=== PATIENT | female | born 1990 | race Caucasian/White ===

== ENCOUNTER 2018-10-07 12:28 | Emergency (ER) | payer MEDICAID ==
[2018-10-07 12:28] VITALS: BMI 22.1
[2018-10-07 12:37] VITALS: TEMP 99.1
[2018-10-07] MEDS ORDERED: Sodium Chloride 0.9% 1,000 ML IV ONE (13:54)
[2018-10-07 13:59] LABS: SQUAMOUS EPITHIAL 9 /hpf (0-5); URINE BILIRUBIN NEGATIVE (NEGATIVE); URINE BLOOD 3+ (NEGATIVE); URINE CLARITY Hazy (Clear); URINE COLOR Yellow (YELLOW); URINE GLUCOSE (UA) NORMAL (Normal); URINE LEUKOCYTE ESTERASE NEG Leu/uL (Negative); URINE PROTEIN NEGATIVE (NEGATIVE); URINE UROBILINOGEN NORMAL mg/dL (0.2-1.0)
[2018-10-07 14:13] LABS: BASO % 0.3 % (0.0-2.0); EOS # 0.1 K/uL (0.0-0.7); EOS % 2.2 % (0.0-4.0); LYMPH # 1.3 K/uL (1.0-4.3); LYMPH % 18.5 % (20.0-40.0); MEAN CELL VOLUME 87.3 fL (81.0-99.0); MEAN CORPUSCULAR HEMOGLOBIN 29.1 pg (27.0-31.0); MEAN CORPUSCULAR HGB CONC 33.3 g/dL (33.0-37.0); MONO # 0.4 K/uL (0.0-0.8); MONO % 5.8 % (0.0-10.0); NEUT % 73.2 % (50.0-75.0); RBC 4.12 Mil/uL (3.80-5.20); RED CELL DISTRIBUTION WIDTH 16.6 % (11.5-14.5); WHITE BLOOD COUNT 6.8 K/uL (4.8-10.8)
[2018-10-07 14:25] LABS: ALB/GLOB RATIO 1.3 (1.0-2.1); ALBUMIN 4.4 g/dL (3.5-5.0); ALT/SGPT 29 U/L (9-52); AST/SGOT 21 U/L (14-36); BLOOD UREA NITROGEN 11 mg/dL (7-17); GFR NON-AFRICAN AMERICAN > 60
--- NOTE | 2018-10-07 15:23 | US ---
Date of service: 10/07/2018 PROCEDURE: OB Pelvic Ultrasound HISTORY: pain LMP: 08/10/2018 suggesting gestation of 8 weeks 2 days. COMPARISON: None available. FINDINGS: UTERUS: Gestational sac: A gestational sac is identified within the endometrial cavity with mean sac diameter is 0.98 cm suggesting less than 5 weeks estimated gestational age. Yolk sacs identified. pole is not identified at this time. Amniotic membrane is not identified. Anabella-gestational hemorrhage: Unremarkable appearing decidual reaction. Uterus measures 9.0 x 6.8 x 8.0 cm, retroverted. Normal in size and appearance. CERVIX: Measures 3.3 cm. Long and closed. No cervical abnormality seen. RIGHT OVARY: Measures 4.8 x 3.7 x 5.3 cm. No mass lesion. Normal flow. Two simple appearing cysts are identified with the more lateral appearing smaller at 2.1 x 12.0 x 2.2 cm. The more medial measures 4.3 x 3.3 x 4.1 cm. No solid right ovarian mass is detected. Intra-ovarian arterial blood flow is detected. LEFT OVARY: Measures 3.5 x 2.1 x 2.9 cm. No solid mass. Normal flow. FREE FLUID: A mild amount of fluid is seen the cul-de-sac slightly complex in appearance. OTHER FINDINGS: None. IMPRESSION: Intrauterine gestation is identified with yolk sac identified. pole not identified. No gross hemorrhage related to decidual reaction at this time. Mean sac diameter may reflect early gestation less than 5 weeks estimated gestational age, discrepant from LMP derived dates. Consider possible viable intrauterine gestation though failure of gestation is a possibility. No definite ectopic gestation appreciable at this time. Follow-up serial serum beta HCG analysis is recommended as well as 1 week transvaginal ultrasonography. TECHNIQUE: Transvaginal pelvic ultrasound was performed with longitudinal and transverse images submitted for interpretation.
--- NOTE | 2018-10-07 15:27 | C.PDOC ---
History Of Present Illness 27 y/o female, , presents to the ER complaining of vaginal bleeding which has been present for the past 3 days. Patient states that the spotting was initially dark brown, but today it became red with clots. Patient is also compla ining of lower back pain. She reports that she had diarrheas 3 days ago which resolved. She notes that she has her first care visit in 2 days. Denies having dysuria, urinary frequency, vomiting, abdominal pain, pelvic pain, sob, fever, and chills. Time Seen by Provider: 10/07/18 13:51 Chief Complaint (Nursing): Female Genitourinary History Per: Patient History/Exam Limitations: no limitations Onset/Duration Of Symptoms: Days Current Symptoms Are (Timing): Still Present Past Medical History Reviewed: Historical Data, Nursing Documentation, Vital Signs Vital Signs: Last Vital Signs Temp 99.1 F 10/07/18 12:34 Pulse 87 10/07/18 12:34 Resp 18 10/07/18 12:34 BP 115/73 10/07/18 12:34 Pulse Ox 100 10/07/18 12:34 - Medical History PMH: No Chronic Diseases Surgical History: No Surg Hx - [facility] Procedures MANUAL ASSIST DELIV NEC (10/25/13) Family History: States: No Known Family Hx - Social History Hx Alcohol Use: No Hx Substance Use: No - Immunization History Hx Tetanus Toxoid Vaccination: No Hx Influenza Vaccination: No Hx Pneumococcal Vaccination: No Review Of Systems Except As Marked, All Systems Reviewed And Found Negative. Constitutional: Negative for: Fever, Chills Gastrointestinal: Negative for: Nausea, Vomiting, Abdominal Pain Genitourinary: Positive for: Vaginal Bleeding. Negative for: Dysuria Musculoskeletal: Positive for: Back Pain Physical Exam - Physical Exam Appears: Non-toxic, No Acute Distress Skin: Normal Color, Warm, Dry Head: Atraumatic, Normacephalic Eye(s): bilateral: Normal Inspection, EOMI Nose: Normal Oral Mucosa: Moist Neck: Normal ROM, Supple Chest: Symmetrical Cardiovascular: Rhythm Regular Respiratory: Normal Breath Sounds, No Rales, No Rhonchi, No Wheezing Gastrointestinal/Abdominal: Normal Exam, Soft, No Tenderness, No Guarding, No Rebound Back: No CVA Tenderness, No Vertebral Tenderness Neurological/Psych: Oriented x3, Normal Speech ED Course And Treatment - Laboratory Results Result Diagrams: 10/07/18 14:09 10/07/18 14:09 O2 Sat by Pulse Oximetry: 100 (RA) Pulse Ox Interpretation: Normal - CT Scan/US US- Transvaginal Other Rad Studies (CT/US): Read By Radiologist, Radiology Report Reviewed CT/US Interpretation: Date of service: 10/07/2018. PROCEDURE: OB Pelvic Ultrasound. HISTORY: pain. LMP: 08/10/2018 suggesting gestation of 8 weeks 2 days. COMPARISON: None available. FINDINGS: UTERUS: Gestational sac: A gestational sac is identified within the endometrial cavity with mean sac diameter is 0.98 cm suggesting less than 5 weeks estimated gestational age. Yolk sacs identified. pole is not identified at this time. Amniotic membrane is not identified. Anabella-gestational hemorrhage: Unremarkable appearing decidual reaction. Uterus measures 9.0 x 6.8 x 8.0 cm, retroverted. Normal in size and appearance. CERVIX: Measures 3.3 cm. Long and closed. No cervical a bnormality seen. RIGHT OVARY: Measures 4.8 x 3.7 x 5.3 cm. No mass lesion. Normal flow. Two simple appearing cysts are identified with the more lateral appearing smaller at 2.1 x 12.0 x 2.2 cm. The more medial measures 4.3 x 3.3 x 4.1 cm. No solid right ovarian mass is detected. Intra-ovarian arterial blood flow is detected. LEFT OVARY: Measures 3.5 x 2.1 x 2.9 cm. No solid mass. Normal flow. FREE FLUID: A mild amount of fluid is seen the cul-de-sac slightly complex in appearance. OTHER FINDINGS: None. IMPRESSION: Intrauterine gestation is identified with yolk sac identified. pole not identified. No gross hemorrhage related to decidual reaction at this time. Mean sac diameter may reflect early gestation less than 5 weeks estimated gestational age, discrepant from LMP derived dates. Consider possible viable intrauterine gestation though failure of gestation is a possibility. No definite ectopic gestation appreciable at this time. Follow-up serial serum beta HCG analysis is recommended as well as 1 week transvaginal ultrasonography. TECHNIQUE: Transvaginal pelvic ultrasound was performed with longitudinal and transverse images submitted for interpretation. Progress Note: Labs, UA, and US- OB Transvag ordered and reviewed. Pt declined pain medication. On re-evaluation, pt remains stable. Afebrile. No abdominal pain. No n/v. Pt was given the results of the US and labs and instructed to follow up with SORT WORKER in 2 days. Disposition - Disposition Disposition: HOME/ ROUTINE Disposition Time: 15:27 Condition: STABLE Additional Instructions: Follow up with your OB in 2 days as scheduled. Show them you ultrasound results. Your beta HCG today is 8500. Return to ER if symptoms persist or worsen. Instructions: Threatened Miscarriage (DC) Forms: Nanali ([place] Islander) - Clinical Impression Clinical Impression: First-trimester bleeding - PA / POLICY CHANGE CLERKS SUPERVISOR / Resident Statement MD/DO has reviewed & agrees with the documentation as recorded. - Scribe Statement The provider has reviewed the documentation as recorded by the Paulibe Minna Quintero Provider Attestation All medical record entries made by the Scribe were at my direction and personally dictated by me. I have reviewed the chart and agree that the record accurately reflects my personal performance of the history, physical exam, medical decision making, and the department course for this patient. I have also personally directed, reviewed, and agree with the discharge instructions and disposition.
[2018-10-07 15:55] VITALS: BP 132/85; PULSE 69; RESP 16
[2018-10-07 17:38] VITALS: O2SAT 100
== END 2018-10-07 15:54 | disposition home or self-care (01) ==
LOC: C.ER 12:28
DX: O46.91 Antepartum hemorrhage, unspecified, first trimester (principal); Z3A.01 Less than 8 weeks gestation of pregnancy

== ENCOUNTER 2018-10-11 09:58 | Observation (INO) | payer MEDICAID ==
[2018-10-11 10:02] VITALS: BMI 29.8
[2018-10-11 11:22] LABS: BASO % 0.3 % (0.0-2.0); EOS # 0.2 K/uL (0.0-0.7); EOS % 1.5 % (0.0-4.0); HEMOGLOBIN 11.4 g/dL (11.0-16.0); LYMPH # 1.5 K/uL (1.0-4.3); LYMPH % 12.1 % (20.0-40.0); MEAN CELL VOLUME 86.9 fL (81.0-99.0); MEAN CORPUSCULAR HEMOGLOBIN 29.3 pg (27.0-31.0); MEAN CORPUSCULAR HGB CONC 33.7 g/dL (33.0-37.0); MEAN PLATELET VOLUME 7.9 fL (7.2-11.7); MONO # 0.7 K/uL (0.0-0.8); MONO % 5.2 % (0.0-10.0); NEUT % 80.9 % (50.0-75.0); RBC 3.89 Mil/uL (3.80-5.20); RED CELL DISTRIBUTION WIDTH 16.1 % (11.5-14.5); WHITE BLOOD COUNT 12.4 K/uL (4.8-10.8)
--- NOTE | 2018-10-11 11:29 | C.PDOC ---
History Of Present Illness 28 year old female presents to the ED complaining of vaginal bleeding. Reports she was seen in the ED 10/07 for vaginal spotting and the US showed she was 5 weeks instead of 8 weeks like she initially thought. She f ollowed up with her Director Sales Support Dr. Jamison on 10/08 and was told she was having a miscarriage. Denies any previous miscarriages. Notes bleeding is worse. Denies any pain or any other complaints. LNMP 08/10/18. Time Seen by Provider: 10/11/18 10:17 Chief Complaint (Nursing): Female Genitourinary History Per: Patient History/Exam Limitations: no limitations Onset/Duration Of Symptoms: Days Current Symptoms Are (Timing): Still Present Associated Symptoms: Other (vaginal bleeding ) Abnormal Vaginal Bleeding: Yes Last Menstral Period: 08/10/18 : 3 Para: 2 Past Medical History Reviewed: Historical Data, Nursing Documentation, Vital Signs Vital Signs: Last Vital Signs Temp 98.9 F 10/11/18 10:03 Pulse 105 H 10/11/18 10:03 Resp 18 10/11/18 10:03 BP 137/68 10/11/18 10:03 Pulse Ox 98 10/11/18 10:03 - Medical History PMH: No Chronic Diseases Surgical History: No Surg Hx - [facility] Procedures MANUAL ASSIST DELIV NEC (10/25/13) Family History: States: No Known Family Hx - Social History Hx Alcohol Use: No Hx Substance Use: No - Immunization History Hx Tetanus Toxoid Vaccination: No Hx Influenza Vaccination: No Hx Pneumococcal Vaccination: No Review Of Systems Except As Marked, All Systems Reviewed And Found Negative. Constitutional: Negative for: Fever, Chills Cardiovascular: Negative for: Chest Pain Respiratory: Negative for: Shortness of Breath Gastrointestinal: Negative for: Nausea, Vomiting, Abdominal Pain, Diarrhea Genitourinary: Positive for: Vaginal Bleeding. Negative for: Dysuria, Hematuria, Vaginal Discharge Physical Exam - Physical Exam Appears: Non-toxic, No Acute Distress Skin: Warm, Dry Head: Normacephalic Eye(s): bilateral: Normal Inspection Nose: Normal Oral Mucosa: Moist Neck: Normal ROM, Supple Chest: Symmetrical Cardiovascular: Rhythm Regular Respiratory: Normal Breath Sounds, No Rales, No Rhonchi, No Wheezing Gastrointestinal/Abdominal: Bowel Sounds, Soft, No Tenderness, No Distention, No Hernia, No Ascites Back: Normal Inspection Extremity: Normal ROM Extremity: Bilateral: Atraumatic, Normal Color And Temperature, Normal ROM Neurological/Psych: Oriented x3, Normal Speech, Normal Motor, Normal Sensation Gait: Steady ED Course And Treatment - Laboratory Results Result Diagrams: 10/11/18 11:18 12 11:18 O2 Sat by Pulse Oximetry: 98 (RA) Pulse Ox Interpretation: Normal - CT Scan/US US transvaginal Other Rad Studies (CT/US): Read By Radiologist, Radiology Report Reviewed CT/US Interpretation: Accession No. : [id number]. Patient Name / ID : FRANCISCO MCCARTNEY / [id number]. Exam Date : 10/11/2018 12:32:14 ( Approved ). Study Comment : Sex / Age : F / 28Y. Creator : Missael Hook MD. Dictator : Missael Hook MD. House Decorator : School Curriculum Developer : Missael Hook MD. Approver2 : Report Date : 10/11/2018 13:29:07. My Comment : . Pelvic ultrasound. HISTORY: Vaginal bleeding. COMPARISON: 10/07/2018. Technique: Real-time sonography was performed through the pelvis utilizing transabdominal and transvaginal technique. Findings: Positive test with HCG level measuring 3676. Uterus: 11.1 x 6.5 x 6.5 centimeters. Heterogeneous echotexture. Anteverted. Endometrium is thickened and heterogeneous measuring up to 1.1 centimeters. No discrete intrauterine identified. Cervix measures 4 centimeters. No free fluid in the pelvic cul-de-sac. Right ovary: 5.5 x 4.3 x 5.2 centimeters. Normal flow. Heterogeneous hypoechoic cyst measuring 4.3 x 3.5 x 4.2 centimeters and 1.5 x 1.6 x 1.5 centimeters. Left ovary: 3.4 x 1.9 x 3.4 centimeters. Normal flow. Impression: Positive test. No discrete intrauterine . In the setting of a positive test and lack of discrete intrauterine considerations include a missed versus early versus ectopic . Clinical correlation. Thickened heterogeneous endometrium measuring up to 1.1 centimeters. Continued interval follow-up is recommended to exclude retained products of conception in the setting of a missed . Clinical correlation. Right ovarian cysts the largest of which measures up to 4.3 centimeters. Clinical correlation. Limited 1st trimester ultrasound for viability purposes only. Continued interval followup with serial ultrasound, serial HCG levels, and gynecological consultation would be helpful if clinically indicated. Medical Decision Making Medical Decision Making: Plan - Bloodwork - UA - US Transvaginal - Keflex 500mg PO - IV fluids - Urine culture 2:08pm case discussed with Dr. Duffy who is coming to evaluate the pt at bed site. Pt was evaluated by Dr. Duffy. Pt has incomplete and will stay for ED&C. Disposition Counseled Patient/Family Regarding: Studies Performed, Diagnosis - Disposition Disposition: HOSPITALIZED Disposition Time: 14:47 Condition: STABLE - Clinical Impression Clinical Impression: Incomplete , Urinary tract infection - PA / HAM BONER / Resident Statement MD/DO has reviewed & agrees with the documentation as recorded. - Scribe Statement The provider has reviewed the documentation as recorded by the Scribe Kandi Keys All medical record entries made by the David were at my direction and personally dictated by me. I have reviewed the chart and agree that the record accurately reflects my personal performance of the history, physical exam, medical decision making, and the department course for this patient. I have also personally directed, reviewed, and agree with the discharge instructions and disposition. Decision To Admit - Pt Status Changed To: Hospital Disposition Of: SDS- Endo,OR,Cath,IR - . Bed Request Type: COMMISSIONER OF CONCILIATION Admitting Physician: Carlos Duffy Patient Diagnosis: Incomplete , Urinary tract infection
[2018-10-11 11:34] LABS: SQUAMOUS EPITHIAL 1 /hpf (0-5); URINE BACTERIA RARE (<OCC); URINE BILIRUBIN NEGATIVE (NEGATIVE); URINE BLOOD 3+ (NEGATIVE); URINE CLARITY Clear (Clear); URINE COLOR Red (YELLOW); URINE GLUCOSE (UA) NORMAL (Normal); URINE PROTEIN 2+ mg/dL (NEGATIVE); URINE UROBILINOGEN NORMAL mg/dL (0.2-1.0)
[2018-10-11 11:35] LABS: ALB/GLOB RATIO 1.1 (1.0-2.1); ALBUMIN 4.1 g/dL (3.5-5.0); ALT/SGPT 31 U/L (9-52); AST/SGOT 20 U/L (14-36); BLOOD UREA NITROGEN 9 mg/dL (7-17); GFR NON-AFRICAN AMERICAN > 60
[2018-10-11 11:36] LABS: URINE LEUKOCYTE ESTERASE 2+ Leu/uL (Negative)
--- NOTE | 2018-10-11 13:33 | US ---
Pelvic ultrasound HISTORY: Vaginal bleeding. COMPARISON: 10/07/2018 Technique: Real-time sonography was performed through the pelvis utilizing transabdominal and transvaginal technique. Findings: Positive test with HCG level measuring 3676. Uterus: 11.1 x 6.5 x 6.5 centimeters. Heterogeneous echotexture. Anteverted. Endometrium is thickened and heterogeneous measuring up to 1.1 centimeters. No discrete intrauterine identified. Cervix measures 4 centimeters. No free fluid in the pelvic cul-de-sac. Right ovary: 5.5 x 4.3 x 5.2 centimeters. Normal flow. Heterogeneous hypoechoic cyst measuring 4.3 x 3.5 x 4.2 centimeters and 1.5 x 1.6 x 1.5 centimeters. Left ovary: 3.4 x 1.9 x 3.4 centimeters. Normal flow. Impression: Positive test. No discrete intrauterine . In the setting of a positive test and lack of discrete intrauterine considerations include a missed versus early versus ectopic . Clinical correlation. Thickened heterogeneous endometrium measuring up to 1.1 centimeters. Continued interval follow-up is recommended to exclude retained products of conception in the setting of a missed . Clinical correlation. Right ovarian cysts the largest of which measures up to 4.3 centimeters. Clinical correlation. Limited 1st trimester ultrasound for viability purposes only. Continued interval followup with serial ultrasound, serial HCG levels, and gynecological consultation would be helpful if clinically indicated.
[2018-10-11] MEDS ORDERED: Sodium Chloride 0.9% 1,000 ML IV ONE (14:07)
--- NOTE | 2018-10-11 14:59 | CP.PCM.HP ---
History of Present Illness - History of Present Illness History of Present Illness: Pt is a 28 yo admitted for incomplete Ab. Pt was in hospital on 10/07 with serum beta at 8500 and TVUS showing Gestational sac/yolk sac consistent with early IUP at 5+ weeks. Pt returned to ED today c/o heavy bleeding an pass age of clots. Beta 3676 with TVUS showing hetrogeneous material, no IUP. Present on Admission - Present on Admission Any Indicators Present on Admission: No Past Patient History - Past Social History Smoking Status: Never Smoked - PSYCHIATRIC Hx Substance Use: No - SURGICAL HISTORY Hx Surgeries: No - ANESTHESIA Hx Anesthesia: No Meds Allergies/Adverse Reactions: Allergies Allergy/AdvReac Type Severity Reaction Status Date / Time No Known Allergies Allergy Verified 10/11/18 10:01 Physical Exam - Constitutional Appears: Well - Exam Speculum exam: Tissue Additional comments: Cervic 2 cm dilated on bimanual exam. 5 cc clot/tissue expressed from cervix/vagina. No active bleeding, no adnexal tenderness Results - Vital Signs Recent Vital Signs: Last Vital Signs Temp 99.2 F 10/11/18 13:39 Pulse 85 10/11/18 13:39 Resp 15 10/11/18 13:39 BP 95/60 L 10/11/18 13:39 Pulse Ox 98 10/11/18 14:51 - Labs Result Diagrams: 10/11/18 11:18 10/11/18 11:18 Labs: Laboratory Results - last 24 hr 10/11/18 10/11/18 10/11/18 11:18 11:18 11:20 WBC 12.4 H D RBC 3.89 Hgb 11.4 Hct 33.8 L MCV 86.9 MCH 29.3 MCHC 33.7 RDW 16.1 H Plt Count 255 MPV 7.9 Neut % (Auto) 80.9 H Lymph % (Auto) 12.1 L Cobb % (Auto) 5.2 Eos % (Auto) 1.5 Baso % (Auto) 0.3 Neut # (Auto) 10.0 H Lymph # (Auto) 1.5 Cobb # (Auto) 0.7 Eos # (Auto) 0.2 Baso # (Auto) 0.0 Sodium 137 Potassium 3.6 Chloride 100 Carbon Dioxide 24 Anion Gap 17 BUN 9 Creatinine 0.5 L Est GFR ( Amer) > 60 Est GFR (Non-Af Amer) > 60 Random Glucose 127 H Calcium 9.0 Total Bilirubin 0.5 AST 20 ALT 31 Alkaline Phosphatase 47 Total Protein 7.6 Albumin 4.1 Globulin 3.5 Albumin/Globulin Ratio 1.1 Beta HCG, Quant 3676.00 Urine Color Red Urine Clarity Clear Urine pH 6.0 Ur Specific Whiteside 1.006 Urine Protein 2+ H Urine Glucose (UA) Normal Urine Ketones Negative Urine Blood 3+ H Urine Nitrate Negative Urine Bilirubin Negative Urine Urobilinogen Normal Ur Leukocyte Esterase 2+ H Urine WBC (Auto) 50 H Urine RBC (Auto) 118 H Ur Squamous Epith Cells 1 Urine Bacteria Rare Blood Type Antibody Screen 10/11/18 11:37 WBC RBC Hgb Hct MCV MCH MCHC RDW Plt Count MPV Neut % (Auto) Lymph % (Auto) Cobb % (Auto) Eos % (Auto) Baso % (Auto) Neut # (Auto) Lymph # (Auto) Cobb # (Auto) Eos # (Auto) Baso # (Auto) Sodium Potassium Chloride Carbon Dioxide Anion Gap BUN Creatinine Est GFR ( Amer) Est GFR (Non-Af Amer) Random Glucose Calcium Total Bilirubin AST ALT Alkaline Phosphatase Total Protein Albumin Globulin Albumin/Globulin Ratio Beta HCG, Quant Urine Color Urine Clarity Urine pH Ur Specific Whiteside Urine Protein Urine Glucose (UA) Urine Ketones Urine Blood Urine Nitrate Urine Bilirubin Urine Urobilinogen Ur Leukocyte Esterase Urine WBC (Auto) Urine RBC (Auto) Ur Squamous Epith Cells Urine Bacteria Blood Type O POSITIVE Antibody Screen Negative Assessment & Plan - Assessment and Plan (Free Text) Assessment: 28 yo with incomplete admitted for D&C Plan: - stable, afebrile - incomplete - consented for OR - awaiting OR team and anesthesia - prep for OR
[2018-10-11] MEDS ORDERED: Propofol 10 mg/ml Inj (20 ML) ONE (17:05)
[2018-10-11] MEDS ORDERED: Midazolam 2 MG/2 ML VIAL ONE (17:05)
[2018-10-11] MEDS ORDERED: Doxycycline 100 mg Inj ONE (17:13)
[2018-10-11] MEDS ORDERED: Silver Nitrate Topical - Stick ONE ×2 (17:20→17:32)
[2018-10-11] MEDS ORDERED: HYDROmorphone 0.5 mg/0.5 ml ISec IVP PRN (17:42)
[2018-10-11 18:55] VITALS: O2SAT 98
[2018-10-11 18:56] VITALS: BP 90/53; PULSE 70; RESP 18; TEMP 99
--- NOTE | 2018-10-16 14:51 | OP ---
PROCEDURE DATE: 10/11/2018 PREOPERATIVE DIAGNOSIS: Incomplete . POSTOPERATIVE DIAGNOSIS: Incomplete . PROCEDURE: Suction dilation and curettage. SURGEON: Carlos Duffy M.D. FINDINGS: Cervix dilated 2 cm, sounded to 10 cm, products of conception at the external cervical os. ESTIMATED BLOOD LOSS: 5 mL. SPECIMEN REMOVED: Products of conception. DESCRIPTION OF PROCEDURE: The patient was taken to the operating room where general mask anesthesia was found to be adequate. She was then prepped and draped in sterile fashion in dorsal lithotomy position by Oleksandr dinh. A weighted speculum and vaginal retractor was used with adequate visualization of cervix. A single tooth tenaculum was used to grasp the anterior lip of the cervix. Upon inspection, findings were as above. A #8 curved suction curette was used. Suction dilation was performed until total adequate tissue was removed. At this point, sharp curettings were performed on the anterior, posterior and lateral schultz of the endometrium. Final passage of the suction curette was used to make sure all the products were removed. The procedure was complete. Single tooth tenaculum was removed. Hemostasis was achieved at those sites with silver nitrate sticks and pressure. All instruments removed from the vagina. The patient tolerated the procedure well. Sponge, lap and needle counts were correct x 2. The patient was taken to the recovery room in stable condition. Carlos Duffy M.D.
== END 2018-10-11 21:00 | disposition home or self-care (01) ==
LOC: C.ER 09:58 → C.9E 14:45 → C.4M 17:54
PROVIDERS: ADMIT Obstetrics & Gynecology; ATTEND Obstetrics & Gynecology
DX: O03.4 Incomplete spontaneous abortion without complication (principal); O03.38 Urinary tract infection following incomplete spontaneous abortion; N39.0 Urinary tract infection, site not specified
CPT/HCPCS: 59812; 76830; 76856; 80053; 81001; 84702; 85025; 86850; 86900; 87086; 88305; 99285; G0378; J1885; J2250; J2405; J2704; J3010; J7030